=== PATIENT | male | born 1980 | race Caucasian/White ===

== ENCOUNTER 2022-05-13 04:20 | Emergency (ER) | payer SELFPAY ==
--- NOTE | 2022-05-13 04:34 | ER ---
Nurse's Notes [facility] Name: Aleksey Bowden Age: 42 yrs Sex: Male : 1980 Arrival Date: 05/13/2022 Time: 04:23 Bed 14 Private MD: Diagnosis: Alcohol use, unspecified with intoxication;Suicidal ideations Presentation: 05/13 04:23 Chief complaint: mental health deputy states pt took some THC and other unknown drug bb substance then stated he has lost some family members recently including his fiance last year then he had a visual hallucination where his fiance wants him to come join her. Coronavirus screen: At this time, the client does not indicate any symptoms associated with coronavirus-19. Ebola Screen: No symptoms or risks identified at this time. Initial Sepsis Screen: Does the patient meet any 2 criteria? No. Patient's initial sepsis screen is negative. Does the patient have a suspected source of infection? No. Patient's initial sepsis screen is negative. Risk Assessment: Do you want to hurt yourself or someone else? Patient reports desire/thoughts of hurting themselves or someone else. Provider notified. 04:23 Method Of Arrival: EMS: [facility] bb 04:23 Acuity: SAILAJA 2 bb 04:30 Chief complaint: Patient states: "I had a break down tonight. I was thinking about vc1 hanging myself, I had a rope. I got scared and called [facility]. I had my medicine changed yesterday and I think that could be what was going on.". 04:30 Onset of symptoms was May 12, 2022. vc1 Triage Assessment: 05:25 General: Appears in no apparent distress. comfortable, Behavior is cooperative, vc1 anxious. Pain: Denies pain. EENT: No deficits noted. Neuro: Level of Consciousness is awake, alert, obeys commands, Oriented to person, place, time, situation, Appropriate for age. Cardiovascular: No deficits noted. Respiratory: Airway is patent Respiratory effort is even, unlabored, Respiratory pattern is regular, symmetrical. GI: No deficits noted. : No deficits noted. Derm: Healed lacerations to left wrist. Musculoskeletal: No deficits noted. No signs and/or symptoms reported regarding the musculoskeletal system. Historical: - Allergies: 05:22 No Known Allergies; vc1 - Home Meds: 05:22 Wellbutrin XL 150 mg Oral Tb24 1 tab once daily [Active]; pantoprazole 40 mg oral TbEC vc1 1 tab once daily [Active]; lorazepam 0.5 mg Oral tab 2 times per day [Active]; hydroxyzine HCl 25 mg Oral tab 1 tab 4 times per day [Active]; - PMHx: 05:22 Anxiety; Depressive disorder; vc1 - PSHx: 05:22 None; vc1 - Immunization history:: Adult Immunizations up to date, Client reports having NOT received the Covid vaccine. - Social history:: Smoking status: Reported history of juuling and/or vaping. Screenin:24 Abuse screen: Denies threats or abuse. Nutritional screening: No deficits noted. vc1 Tuberculosis screening: No symptoms or risk factors identified. Fall Risk None identified. Assessment: 05:30 Reassessment: See triage assessment. vc1 07:05 Reassessment: Patient appears in no apparent distress at this time. Patient and/or tw2 family updated on plan of care and expected duration. Pain level reassessed. pt appears to be sleeping, sitter at bedside at this time and will remain throughout shift. 09:05 Reassessment: Patient appears in no apparent distress at this time. Patient and/or tw2 family updated on plan of care and expected duration. Pain level reassessed. 10:09 Reassessment: [facility] at bedside at this time. tw2 11:05 Reassessment: Patient appears in no apparent distress at this time. Patient and/or tw2 family updated on plan of care and expected duration. Pain level reassessed. [facility] currently still at bedside at this time. 11:47 Reassessment: provider Dr. Polanco at bedside at this time. tw2 11:52 Reassessment: per MD plan is to discharge pt. reverse unit operator notified to call security tw2 for pts belongings at this time. 12:04 Reassessment: Patient appears in no apparent distress at this time. Patient and/or tw2 family updated on plan of care and expected duration. Pain level reassessed. Patient is alert, oriented x 3, equal unlabored respirations, skin warm/dry/pink. pts belongings returned to pt from security. pt getting dressed at this time. Psych: 05:27 [place] Suicide Severity Screening: In the past month, have you wished you were vc1 or wished you could go to sleep and not wake up? Patient responds "No." "In the past month, have you actually had any thoughts of killing yourself?" Patient responds "yes." Based off the client's response additional [place] suicide severity screening questions to be further documented on paper forms. "In your lifetime, have you ever done anything, started to do anything, or prepared to do anything to end your life?" Patient responds "yes." Tonight was the only time. Subjective: Patient's mood is sad, Delusions are denied, Hallucinations are auditory, Having thoughts of suicide. Plan for suicide is To hang self. Objective: Patient is cooperative, Speech is normal, Affect is appropriate, Patient has mutilated themselves by Healed scars to left wrist. Interventions: Removed personal items and placed in bag. Patient placed in hospital gown. Searched person for dangerous items. Urine collected and sent for urine drug test. Belonging list filled out. Safety Checks: Personal items have been removed. Door is open. Patient uses marijuana "2 bowls tonight". Commitment: Patient will be an involuntary commitment. 05:30 Commitment: Commitment papers completed. vc1 Vital Signs: 04:30 BP 128 / 87; Pulse 90; Resp 15; Temp 99.1(O); Pulse Ox 97% ; Weight 83.91 kg; Height 5 vc1 ft. 10 in. (177.80 cm); Pain 0/10; 12:04 BP 131 / 94; Pulse 107; Resp 17; Temp 98.1(TE); Pulse Ox 96% on R/A; tw2 04:30 Body Mass Index 26.54 (83.91 kg, 177.80 cm) vc1 ED Course: 04:23 Patient arrived in ED. bb 04:23 Stevie Carballo DO is Attending Physician. ms3 04:23 Arm band placed on Patient placed in an exam room, on a stretcher, on pulse oximetry. bb 04:25 Triage completed. bb 05:27 No provider procedures requiring assistance completed. vc1 07:05 Bed in low position. Call light in reach. tw2 07:09 Anuja Keith, ADRIANA is Primary Nurse. tw2 08:19 contacted [facility] to have pt screened. bd 12:05 Patient did not have IV access during this emergency room visit. tw2 Administered Medications: 05:15 Drug: Nicotine Patch 21 mg/24 hr 1 patches {Note: left shoulder.} Route: Transdermal; vc1 Site: affected area; 06:51 Not Given (Physician Discretion): NS 0.9% 1000 ml IV at 1000 ml once vc1 Medication: 05:30 VIS not applicable for this client. vc1 Outcome: 04:32 ER care complete, transfer ordered by . ms3 11:55 Discharge ordered by . sd2 12:11 Discharged to home ambulatory. tw2 12:11 Condition: stable 12:11 Discharge instructions given to patient, Instructed on discharge instructions, follow up and referral plans. 12:11 Patient left the ED. tw2 Signatures: Elizabeth Henry Brenda RN RN bb Anuja Keith RN RN tw2 Stevie Carballo DO DO ms3 Lorena Pan RN RN vc1 Rosalinda Lopez MD MD sd2 Corrections: (The following items were deleted from the chart) 09:48 07:05 Reassessment: Patient appears in no apparent distress at this time. Patient tw2 and/or family updated on plan of care and expected duration. Pain level reassessed. pt appears to be sleeping, sitter at bedside at this time and throughout shift tw2
--- NOTE | 2022-05-13 04:34 | EDPHYS ---
Physician Documentation [facility] Name: Aleksey Bowden Age: 42 yrs Sex: Male : 1980 Arrival Date: 05/13/2022 Time: 04:23 Bed 14 Private MD: ED Physician Stevie Carballo HPI: 05/13 04:33 This 42 yrs old Male presents to ER via EMS with complaints of Suicidal Ideation. ms3 04:33 42-year-old male with past medical history of depression and anxiety presents via [address] [facility] for suicidal ideations. Patient states his plan was to hang himself with a rope from his carport. EMS states patient was hearing voices telling him to hang himself. Patient states he had a sixpack of beer and 2 bowls of marijuana today. Patient states he did have hallucinations and he saw his fiance that has . Patient feels like this could be due to switching his medications to Wellbutrin.. Historical: - Allergies: 05:22 No Known Allergies; vc1 - Home Meds: 05:22 Wellbutrin XL 150 mg Oral Tb24 1 tab once daily [Active]; pantoprazole 40 mg oral TbEC vc1 1 tab once daily [Active]; lorazepam 0.5 mg Oral tab 2 times per day [Active]; hydroxyzine HCl 25 mg Oral tab 1 tab 4 times per day [Active]; - PMHx: 05:22 Anxiety; Depressive disorder; vc1 - PSHx: 05:22 None; vc1 - Immunization history:: Adult Immunizations up to date, Client reports having NOT received the Covid vaccine. - Social history:: Smoking status: Reported history of juuling and/or vaping. ROS: 04:33 Constitutional: Negative for fever, and chills. Neck: Negative for injury, pain, and ms3 swelling, Cardiovascular: Negative for chest pain, and palpitations. Respiratory: Negative for shortness of breath, cough, wheezing, and pleuritic chest pain, Abdomen/GI: Negative for abdominal pain, nausea, vomiting, diarrhea, and constipation, MS/Extremity: Negative for injury and deformity, Skin: Negative for injury, rash, and discoloration. 04:33 Psych: Positive for visual hallucinations, suicidal ideation. 04:33 All other systems are negative. Exam: 04:33 Constitutional: This is a well developed, well nourished patient who is awake, alert, ms3 and in no acute distress. Head/Face: Normocephalic, atraumatic. Neck: Trachea midline, no cervical lymphadenopathy. Supple, full range of motion without nuchal rigidity, or vertebral point tenderness. No Meningismus. Chest/axilla: Normal chest wall appearance and motion. Nontender with no deformity. Cardiovascular: Regular rate and rhythm with a normal S1 and S2. No gallops, murmurs, or rubs. Normal PMI, no JVD. No pulse deficits. Respiratory: Lungs have equal breath sounds bilaterally, clear to auscultation and percussion. No rales, rhonchi or wheezes noted. No increased work of breathing, no retractions or nasal flaring. Abdomen/GI: Soft, non-tender, with normal bowel sounds. No distension or tympany. No guarding or rebound. No evidence of tenderness throughout. Back: No spinal tenderness. No costovertebral tenderness. Full range of motion. Skin: Warm, dry with normal turgor. Normal color with no rashes, no lesions, and no evidence of cellulitis. MS/ Extremity: Pulses equal, no cyanosis. Neurovascular intact. Full, normal range of motion. 04:33 Psych: Behavior/mood is pleasant, cooperative, Affect is calm, Oriented to person, place, time, Patient having thoughts of suicide. Plan for suicide is going to hang himself with a rope from his car port 05:09 ECG was reviewed by the Attending Physician. ms3 Vital Signs: 04:30 BP 128 / 87; Pulse 90; Resp 15; Temp 99.1(O); Pulse Ox 97% ; Weight 83.91 kg; Height 5 vc1 ft. 10 in. (177.80 cm); Pain 0/10; 12:04 BP 131 / 94; Pulse 107; Resp 17; Temp 98.1(TE); Pulse Ox 96% on R/A; tw2 04:30 Body Mass Index 26.54 (83.91 kg, 177.80 cm) vc1 MDM: 04:26 Patient medically screened. ms3 04:33 Differential diagnosis: acute psychotic break, depression, psychosis secondary to ms3 non-compliance. 06:06 Data reviewed: vital signs, nurses notes, lab test result(s). Counseling: I had a ms3 detailed discussion with the patient and/or guardian regarding: the historical points, exam findings, and any diagnostic results supporting the discharge/admit diagnosis, lab results, the need to transfer to another facility, for higher level of care, [facility] does not immediately have the required specialist. ED course: Patient remains in stable condition at this time.. 11:52 ED course: [facility] evaluated patient at bedside. Pt is sober, awake, alert sd2 and oriented x4. Denies SI. Reports he was just looking to speak to a counselor last night and did not have any intent in regards to his SI and currently no longer has these thoughts. Denies ever having HI or hallucinations. Is being weaned off benzodiazepines for his anxiety and did smoke 2 bowls of marijuana last night as well with other recent changes in his medications that yesterday was the first day. Given resources for outpatient follow up and pt is comfortable with this plan. Safety plan in place and patient reports feeling safe going home. Verbalizes understanding of discharge plan and strict return precautions.. 05/13 04:27 Order name: Acetaminophen; Complete Time: 06:02 ms3 05/13 04:27 Order name: Basic Metabolic Panel; Complete Time: 06:02 ms3 05/13 04:27 Order name: CBC with Diff; Complete Time: 06:02 ms3 05/13 04:27 Order name: ETOH Level; Complete Time: 06:02 ms3 05/13 04:27 Order name: Hepatic Function; Complete Time: 06:02 ms3 05/13 04:27 Order name: PT-INR; Complete Time: 06:02 ms3 05/13 04:27 Order name: Ptt, Activated; Complete Time: 06:02 ms3 05/13 04:27 Order name: Salicylate; Complete Time: 06:02 ms3 05/13 04:27 Order name: Urine Drug Screen; Complete Time: 06:02 ms3 05/13 04:27 Order name: EKG; Complete Time: 04:28 ms3 05/13 04:27 Order name: SARS-COV-2 Antigen Rapid; Complete Time: 06:02 ms3 05/13 05:44 Order name: Urine Dipstick-Ancillary; Complete Time: 06:02 EDMS 05/13 04:27 Order name: EKG - Nurse/Tech; Complete Time: 05:15 ms3 05/13 04:27 Order name: IV Saline Lock; Complete Time: 05:15 ms3 05/13 04:27 Order name: Labs collected and sent; Complete Time: 05:15 ms3 05/13 04:27 Order name: Suicide Precautions; Complete Time: 05:15 ms3 05/13 04:27 Order name: Suicide Screening ([place]); Complete Time: 05:15 ms3 05/13 04:27 Order name: Urine Dipstick-Ancillary (obtain specimen); Complete Time: 06:03 ms3 05/13 07:40 Order name: Diet Finger Food; Complete Time: 07:41 bd EC:09 Rate is 84 beats/min. Rhythm is regular. QRS Sabael is Normal. MO interval is normal. QRS ms3 interval is normal. Clinical impression: Normal ECG. Interpreted by me. Reviewed by me. Administered Medications: 05:15 Drug: Nicotine Patch 21 mg/24 hr 1 patches {Note: left shoulder.} Route: Transdermal; vc1 Site: affected area; 06:51 Not Given (Physician Discretion): NS 0.9% 1000 ml IV at 1000 ml once vc1 Disposition Summary: 05/13/22 11:55 Discharge Ordered Location: Home sd2 Problem: new(05/13/22 11:55) sd2 Symptoms: are resolved(05/13/22 11:55) sd2 Condition: Stable(05/13/22 11:55) sd2 Diagnosis - Alcohol use, unspecified with intoxication sd2 - Suicidal ideations(05/13/22 11:55) sd2 Followup: sd2 - With: Private Physician - When: 2 - 3 days - Reason: Recheck today's complaints, Continuance of care, Re-evaluation by your physician Discharge Instructions: - Discharge Summary Sheet sd2 - Suicidal Feelings: How to Help Yourself sd2 - Helping Someone Who is Suicidal sd2 Forms: - Medication Reconciliation Form sd2 - Thank You Letter sd2 - Antibiotic Education sd2 - Prescription Opioid Use sd2 Signatures: Dispatcher [employer] EDMS Stevie Carballo DO DO ms3 Lorena Pan RN RN vc1 Rosalinda Lopez MD MD sd2 Corrections: (The following items were deleted from the chart) 06:06 04:32 Dr ms3 ms3 11:54 04:32 Psych Facility ms3 sd2 11:54 04:32 Higher level of care ms3 sd2 11:54 04:32 Stable ms3 sd2 11:54 04:32 new ms3 sd2 11:54 04:32 are unchanged ms3 sd2 11:54 04:32 Suicidal ideations ms3 sd2 11:54 06:06 Dr ms3 sd2 11:54 06:06 Alcohol abuse with intoxication ms3 sd2 11:54 06:06 Hallucinations, unspecified ms3 sd2
[2022-05-13 05:08] LABS: Absolute Lymphocytes (CBC) 3.5 K/uL (0.7-4.9); Hematocrit 43.5 % (39.6-49.0); Lymphocytes % 42.9 % (15.3-44.8); MCV 94.6 fL (80-100); MPV 7.9 fL (7.6-11.3); RBC Red Blood Cell Count 4.59 M/uL (4.33-5.43)
[2022-05-13 05:12] LABS: Protime INR 0.82
[2022-05-13] MEDS ORDERED: NICOTINE 21 MG/PAT TD ONE (05:20)
[2022-05-13 05:30] LABS: Barbiturates NEGATIVE (NEGATIVE); Benzodiazepines NEGATIVE (NEGATIVE); Cocaine NEGATIVE (NEGATIVE); METHAMPHETAM NEGATIVE (NEGATIVE); Methadone NEGATIVE (NEGATIVE); Opiates NEGATIVE (NEGATIVE); Phencyclidine NEGATIVE (NEGATIVE); THC Cannibis NEGATIVE (NEGATIVE)
[2022-05-13 05:32] LABS: ALT/SGPT 32 U/L (12-78); AST/SGOT 25 U/L (15-37); Albumin 4.1 g/dL (3.4-5.0); Alkaline Phosphatase 51 U/L (45-117); BUN Blood Urea Nitrogen 14 mg/dL (7-18); Bicarbonate 20 mmol/L (21-32); Bilirubin Total 0.2 mg/dL (0.2-1.0); Glomerular Filtration Rate 112 ml/min (=/>90); Glucose Level 99 mg/dL (74-106); Potassium 3.6 mmol/L (3.5-5.1); Sodium Level 136 mmol/L (136-145)
[2022-05-13 05:35] LABS: Bilirubin Direct < 0.1 mg/dL (0-0.2); SARS-CoV-2 Antigen Rapid Res Negative (Negative)
[2022-05-13 05:43] LABS: Urine Blood Negative (Negative); Urine Glucose Negative (Negative); Urine Protein Negative (Negative); Urine Specific Gravity <=1.005 (1.005-1.030)
--- NOTE | 2022-05-14 06:34 | EKG ---
Test Date: 2022-05-13 Test Time: 04:45:07 Document Advisor: LAYA MEASUREMENT RESULTS: Intervals: Rate: 84 AK: 182 QRSD: 86 QT: 378 QTc: 446 [place]: P: 41 AK: 182 QRS: 24 T: 10 INTERPRETIVE STATEMENTS: Normal sinus rhythm Possible Left atrial enlargement Borderline ECG No previous ECG available for comparison Electronically Signed On 05-14-22 06:31:25 CDT by Josue Escobedo
[2022-05-14 14:59] VITALS: BP 131/94; TEMP 98.1; O2SAT 96
== END 2022-05-13 12:11 | disposition home or self-care (01) ==
LOC: ER 04:20
DX: R45.851 Suicidal ideations (principal); F10.929 Alcohol use, unspecified with intoxication, unspecified; F32.A Depression, unspecified; Z20.822 Contact with and (suspected) exposure to COVID-19
CPT/HCPCS: 36415; 80048; 80076; 80307; 80320; 80329; 81003; 85025; 85610; 85730; 87811; 93005; 99285